=== PATIENT | female | born 1955 | race Caucasian/White ===

== ENCOUNTER 2025-02-12 19:07 | Emergency (ER) | payer MEDICARE, SELFPAY ==
[2025-02-12] VITALS (21 sets, daily range): BP systolic 108–187; BP diastolic 54–114; PULSE 60–76; RESP 10–38; TEMP 37.1; O2SAT 92–99; BMI 39.9
--- NOTE | 2025-02-12 19:22 | ED.UPPEXIN ---
HPI - Extremity Injury (Upper) General Chief Complaint: Trauma Stated Complaint: Fall on thinners, R arm injury Time Seen by Provider: 02/12/25 19:20 History of Present Illness HPI narrative: 69-year-old female with history of atrial fibrillation status post recent successful cardioversion in home area 2 days ago using propofol, taking same Eliquis anticoagulation, visiting family in the area from home [place] area, tonight tripped on a rug, fell onto right arm/shoulder, bumped the right side of her face. No loss of consciousness. Has distracting pain from very severe right shoulder pain. Right facial pain. Denies pain to chest, upper mid lower back, abdomen, hips, lower extremities, left upper extremity. Related Data Allergies Allergy/AdvReac Type Severity Reaction Status Date / Time sulfamethoxazole (From Allergy Intermediate Rash Verified 02/12/25 19:43 Bactrim) trimethoprim (From Bactrim) Allergy Intermediate Rash Verified 02/12/25 19:43 diclofenac AdvReac Mild Gastrointestinal Verified 02/12/25 19:43 Upset Patient History Social History Smoking Status: Never smoker Exam Narrative Exam Narrative: GENERAL: Well-developed patient, in mild distress. HEAD: Atraumatic. Normocephalic. EYES: Pupils equal round and reactive. Extraocular motions intact. No scleral icterus. No injection or drainage. ENT: Nose without bleeding, purulent drainage. Tonsillar hypertrophy or exudate. Airway patent. NECK: Trachea midline. Non tender CARDIOVASCULAR: Regular rate and rhythm without murmurs, gallops, or rubs. RESPIRATORY: Clear to auscultation. Breath sounds equal bilaterally. No wheezes, rales, or rhonchi. GASTROINTESTINAL: Abdomen soft, non-tender, nondistended. EXTREMITIES: Tenderness right upper shoulder with AC step-off and anterior fullness, possible shoulder dislocation, unclear if there is any tenderness along the mid upper humerus as well, versus pain from nearby dislocation, no obvious gross deformity along the mid distal humerus or at the elbow, which is in flexed position of comfort. No tenderness or deformity along the right forearm wrist hand fingers. Good right radial pulse. Good cap refill right fingers. BACK: Nontender without deformity or crepitance. No flank tenderness. NEURO: AOx3. Motor functions grossly nonfocal. SKIN: No rash or erythema of visible areas Initial Vital Signs Initial Vital Signs: Vital Signs Temperature 98.8 F 11/27/25 19:14 Pulse Rate 69 02/12/25 19:14 Respiratory Rate 24 02/12/25 19:14 Blood Pressure 187/114 H 02/12/25 19:14 Pulse Oximetry 98 02/12/25 19:14 Oxygen Delivery Method Room Air 02/12/25 19:14 Procedures Orthopedic Joint Reduction Joint #1: Time of procedure: 21:46 Time Out Performed: Yes Side: right Joint Reduction Location: shoulder Analgesia: procedural sedation Shoulder Technique Used (if applicable): external rotation (And impending manipulation with single attempt, palpable reduction.) Technique used: direct manipulation Post-reduction neuro exam: intact Post-reduction vascular: intact Post Reduction X-Ray Obtained: Yes Post Reduction X-Ray Results: reduced Splint Applied: Yes (Sling applied right shoulder) Patient Tolerated Procedure: Well Course Orders Ordered: ED Orders 02/12/25 19:23 CT head/brain wo con Stat 02/12/25 19:24 XR humerus RT 2V Stat XR shoulder RT 2+ views Stat 02/12/25 19:25 CBC Auto Diff [Complete Blood Count AUTO DIFF] Stat CMP [Comprehensive Metabolic Panel] Stat Prothrombin Time INR Stat 02/12/25 19:26 CT cervical spine wo con Stat 02/12/25 21:43 XR shoulder RT 2+ views Stat 02/12/25 21:51 CT UE RT wo con Stat Discontinued Medications Diphenhydramine HCl (Diphenhydramine 50 Mg/Ml Vial) 25 mg IV NOW ONE Stop: 02/12/25 20:13 Last Admin: 02/12/25 20:20 Dose: 25 mg Documented By: MARILYNN Hydromorphone HCl (Hydromorphone Hcl 0.5 Mg/0.5 Ml Syringe) 0.5 mg IV NOW ONE Stop: 02/12/25 19:29 Last Admin: 02/12/25 19:31 Dose: 0.5 mg Documented By: MARILYNN Hydromorphone HCl (Hydromorphone Hcl 0.5 Mg/0.5 Ml Syringe) 0.5 mg IV NOW ONE Stop: 02/12/25 20:24 Last Admin: 02/12/25 20:25 Dose: 0.5 mg Documented By: MARILYNN Metoclopramide HCl (Metoclopramide 10 Mg/2 Ml Inj) 10 mg IV NOW ONE Stop: 02/12/25 20:12 Last Admin: 02/12/25 20:19 Dose: 10 mg Documented By: MARILYNN Ondansetron HCl (Ondansetron 4 Mg/2 Ml Inj) 4 mg IV NOW ONE Stop: 02/12/25 19:29 Last Admin: 02/12/25 19:31 Dose: 4 mg Documented By: MARILYNN Ondansetron HCl (Ondansetron 4 Mg Odt) 4 mg SL NOW ONE Stop: 02/12/25 23:03 Last Admin: 02/12/25 23:23 Dose: Not Given Documented By: ELPIDIO Propofol (Propofol 200 Mg/20 Ml Vial) 200 mg IV NOW ONE Stop: 02/12/25 20:57 Last Admin: 02/12/25 21:39 Dose: 80 mg Documented By: MARILYNN Vital Signs Vital signs: Vital Signs - 8 hr 02/12/25 19:14 02/12/25 19:26 02/12/25 19:27 Temperature 98.8 F Pulse Rate 69 69 71 Respiratory Rate 24 24 Blood Pressure 187/114 H Pulse Oximetry 98 99 Oxygen Delivery Method Room Air Oxygen Flow Rate 02/12/25 19:30 02/12/25 20:09 02/12/25 20:10 Temperature Pulse Rate 70 70 69 Respiratory Rate Blood Pressure Pulse Oximetry 99 92 97 Oxygen Delivery Method Oxygen Flow Rate 02/12/25 20:10 02/12/25 20:30 02/12/25 20:30 Temperature Pulse Rate 76 Respiratory Rate Blood Pressure 146/71 H 143/85 H Pulse Oximetry 92 Oxygen Delivery Method Oxygen Flow Rate 02/12/25 21:00 02/12/25 21:22 02/12/25 21:30 Temperature Pulse Rate 65 65 Respiratory Rate 19 Blood Pressure Pulse Oximetry 96 97 Oxygen Delivery Method Oxygen Flow Rate 2 02/12/25 21:30 02/12/25 21:40 02/12/25 21:40 Temperature Pulse Rate 68 Respiratory Rate 38 H Blood Pressure 134/82 130/60 Pulse Oximetry 94 Oxygen Delivery Method Oxygen Flow Rate 02/12/25 21:45 02/12/25 21:45 02/12/25 21:52 Temperature Pulse Rate 63 64 Respiratory Rate 10 L 22 Blood Pressure 117/54 L Pulse Oximetry 98 99 Oxygen Delivery Method Oxygen Flow Rate 02/12/25 21:52 02/12/25 21:55 02/12/25 21:55 Temperature Pulse Rate 62 Respiratory Rate 26 H Blood Pressure 108/75 123/77 Pulse Oximetry 98 Oxygen Delivery Method Oxygen Flow Rate 02/12/25 22:00 02/12/25 22:00 02/12/25 22:03 Temperature Pulse Rate 61 69 Respiratory Rate 25 H 24 Blood Pressure 144/76 H Pulse Oximetry 95 Oxygen Delivery Method Oxygen Flow Rate 02/12/25 22:05 02/12/25 22:05 02/12/25 22:11 Temperature Pulse Rate 60 68 Respiratory Rate 21 28 H Blood Pressure 148/69 H Pulse Oximetry 94 97 Oxygen Delivery Method Oxygen Flow Rate 02/12/25 22:11 02/12/25 22:24 02/12/25 22:24 Temperature Pulse Rate 64 Respiratory Rate 14 Blood Pressure 139/68 137/78 Pulse Oximetry 98 Oxygen Delivery Method Oxygen Flow Rate 02/12/25 22:30 02/12/25 23:00 02/12/25 23:12 Temperature Pulse Rate 61 63 74 Respiratory Rate 10 L 14 28 H Blood Pressure Pulse Oximetry 95 93 97 Oxygen Delivery Method Oxygen Flow Rate 02/12/25 23:12 Temperature Pulse Rate Respiratory Rate Blood Pressure 155/92 H Pulse Oximetry Oxygen Delivery Method Oxygen Flow Rate MDM - Extremity Injury (Upper) Lab Data Attestation: I reviewed the patient's lab results. Lab results narrative: White blood cell count 8700, hemoglobin 11.2, platelets adequate. Glucose 163. BUN 22 elevated, with normal creatinine, normal serum CO2 and electrolytes. Liver functions normal. 02/12/25 19:25 02/12/25 19:25 Labs: Lab Results 02/12/25 Range/Units 19:25 WBC 8.7 (4.5-11.0) X10^3/uL RBC 3.87 L (4.0-5.2) X10^6/uL Hgb 11.2 L (12.0-16.0) g/dL Hct 33.5 L (36-46) % MCV 86.5 (80-100) fL MCH 29.0 (26-34) PG MCHC 33.5 (30-36) % RDW 14.6 (11.6-14.8) % Plt Count 278 (150-400) X10^3/uL Neut % (Auto) 58.4 (50-75) % Lymph % (Auto) 29.2 (25-40) % [place] % (Auto) 7.8 (3-14) % Eos % (Auto) 4.0 (2-4) % Baso % (Auto) 0.6 (0-2) % Neut # (Auto) 5100 (5594-4071) /uL Lymph # (Auto) 2500 (1703-2442) /uL [place] # (Auto) 700 (0-900) /uL Eos # (Auto) 300 (0-450) /uL Baso # (Auto) 0 (0-100) /uL PT 13.6 H (9.4-12.5) SECONDS INR 1.2 (0.9-1.3) Sodium 141 (137-145) mmol/L Potassium 3.6 (3.4-5.1) mmol/L Chloride 103 (98-107) mmol/L Carbon Dioxide 28 (22-32) mmol/L BUN 22 H (7-17) mg/dL Creatinine 0.97 (0.52-1.04) mg/dL Estimated GFR > 60 (>60) mL/min BUN/Creatinine Ratio 22.7 H (6-22) Glucose 163 H (70-99) mg/dL Calcium 9.1 (8.4-10.2) mg/dL Total Bilirubin 0.5 (0.2-1.3) mg/dL AST 32 (14-36) IU/L ALT 21 (<35) IU/L Alkaline Phosphatase 75 (38-126) U/L Total Protein 7.1 (6.3-8.2) g/dL Albumin 4.5 (3.5-5.0) g/dL Globulin 2.6 (1.7-4.1) g/dL Albumin/Globulin Ratio 1.7 (1.0-2.8) Point of Care Testing Test Results Positive MDM Narrative Medical decision making narrative: 69-year-old female with ground level fall, on Eliquis anticoagulation for atrial fibrillation status post recent successful cardioversion procedure in her home [place] area, mechanical fall tripping on a rug. Modified trauma due to chronic anticoagulation and head trauma, right facial pain after fall. Suspected clinical diagnosis right anterior shoulder dislocation. Primary survey: Airway, breathing, circulation intact. GCS 15. Secondary survey: See physical exam sections, remarkable for right shoulder tenderness with apparent anterior fullness, suspected shoulder dislocation on the right side. Lab data: White blood cell count 8700, hemoglobin 11.2, platelets adequate. Glucose 163. BUN 22 elevated, with normal creatinine, normal serum CO2 and electrolytes. Liver functions normal. CT head noncontrast, no acute changes. See radiology report. CT cervical spine noncontrast, no acute changes. See radiology report. Right shoulder x-ray series. Shows anterior dislocation, suspected glenoid/scapular fracture. See radiology report. Right humerus x-ray series. Again demonstrates anterior shoulder dislocation, no humeral shaft fractures definitive. See radiology report. 2100, case was discussed with Orthopedic surgery on-call Dr. Rodriguez, who was able to review shoulder plain films, also believes of the humerus shaft looks intact, possible scapular cup fracture, should be able to do normal technique reduction, if successful he would like postreduction right shoulder CT scan imaging. Above findings discussed with patient, she would like to proceed with reduction. Consent. See separate sedation and procedure notes. ------ Procedural Sedation Note: see ROS and EXAM above Last meal [3] hours prior to procedure ASA Classification [2, high BMI noted] ( ASA Classifications: 1-normal, 2-mild systemic disease, 3-severe systemic disease, 4- severe systemic disease that is constant threat to life, 5-moribund patient not expected to live without procedure) Time Out Completed[] yes Procedure performed by me for [] closed anterior right shoulder dislocation Procedure and alternatives explained, all questions answered and consent signed by [] verbal consent, could not by signed due to pain, verbal consent witnessed by me/RNs as well Time of sedation []2139 Medications administered by RN [] Medications administered by Provider [] yes Level of sedation [moderate] Medication used: IV propofol 80 mg total (40 mg bolus x2) Complications [] successful reduction single attempt, had brief desaturation as anticipated with elevated BMI, responsive to jaw thrust positioning and brief bag mask ventilation, purposeful movement and improved saturations and returned to preprocedural mental status baseline. Post procedure evaluation [] returned to preprocedural mental status baseline. ---- Single attempt [place] technique right shoulder reduction after IV propofol, reduced with single attempt, clinical reduction, neurovascular intact, postreduction x-ray looks anatomic. We will order right shoulder CT scan per ortho recommendation above. Recovery to baseline. CT right shoulder post reduction done per orthopedic surgery recommendation, did not confirm any fracture seen on plain films. Tolerated procedure well. Returned to preprocedure baseline mental status, ambulatory, able to take oral fluids. Advised continued use of right shoulder sling. Take pain medications as needed, she has a supply of tramadol that she has for travel to control pain if needed. She lives in the [facility], we will follow up with Orthopedic surgery there. Patient was printed copies of all her imaging results. Discharged home with family. Follow up with Orthopedic surgery early this next week after weekend. Discharge Plan Departure Patient Disposition: Home Clinical Impression: Anterior dislocation of right shoulder Instructions: DI for Shoulder Dislocation Activity Restrictions/Additional Instructions: Mechanical tripping fall on a rug, fell onto right arm, anterior shoulder dislocation on the right found by x-rays. There was initial concern by Radiology that there might be an associated scapular small fracture. The humerus bone of the upper arm otherwise did not seem to have any obvious fracture. CT scanning of the brain in the cervical spine of the neck did not show any obvious fracture injury patterns. We gave sedating medications and were able to put your dislocated right shoulder back into its normal place, in place you into a sling. You had recovery from the sedation, which he tolerated well. Orthopedic surgery had reviewed your x-rays before reduction, and wanted a CT scan of the right shoulder after the reduction was completed. This was performed, did not confirm any fractures that were suspected pre reduction, perhaps there were some kind of calcification or artifact at that time. You expressed intent to follow up with Orthopedic surgery in your home [facility]. Copies of your x-ray reports and CT reports were provided. In the past images were saved onto a disc to open by your providers but apparently they can be sent electronically per request of your home area providers as needed now, they did not printed any discs anymore with images. You have tramadol to take for pain control if needed. Wear your shoulder sling until seen by Orthopedic surgery early this next week after . Return to this/nearest emergency department for any change worsening symptoms or any concerns prior. Stand Alone Forms: Patient Portal/API
--- NOTE | 2025-02-12 19:23 | DI.CT.S_ITS ---
PROCEDURE: CT HEAD/BRAIN WO CON INDICATIONS: face head trauma, fall, on thinners TECHNIQUE: Noncontrast 4.5 mm thick angled axial sections acquired from the foramen magnum to the vertex, with coronal and sagittal reformats. For radiation dose reduction, the following was used: automated exposure control, adjustment of mA and/or kV according to patient size. COMPARISON: None. FINDINGS: Image quality: Diagnostic. CSF spaces: Basal cisterns are patent. No extra-axial fluid collections. Ventricles are normal in size and shape. Brain: No midline shift. No intracranial mass effect or hemorrhage. Clifford- white matter interface is normal. Skull and face: Calvarium and visualized facial bones are intact, without suspicious lesions. Sinuses: Visualized sinuses and mastoids are clear. IMPRESSION: 1. No acute intracranial process. Dictated by: Cari Teran M.D. on 02/12/2025 at 20:15 Approved by: Cari Teran M.D. on 02/12/2025 at 20:16
--- NOTE | 2025-02-12 19:24 | DI.RAD.S_ITS ---
PROCEDURE: XR SHOULDER RT MIN 2V INDICATIONS: shoulder injury GLF TECHNIQUE: 3 views of the shoulder were acquired. COMPARISON: None. FINDINGS: Bones: Humeral head is inferior medial to the glenohumeral joint space. Ill- defined lucencies are present at the glenoid/scalp. Soft tissues: No suspicious soft tissue calcifications. IMPRESSION: Anterior dislocation. Suspected glenoid/scapular fracture. Dictated by: Cari Teran M.D. on 02/12/2025 at 20:14 Approved by: Cari Teran M.D. on 02/12/2025 at 20:15
--- NOTE | 2025-02-12 19:24 | DI.RAD.S_ITS ---
PROCEDURE: XR HUMERUS RT 2V INDICATIONS: fall, ?fx. TECHNIQUE: 2 views of the humerus were acquired. COMPARISON: [facility], CR, XR SHOULDER RT 2+ VIEWS, 02/12/2025, 19:54. FINDINGS: Bones: Humeral head demonstrates inferior and medial position secondary to the glenohumeral joint space. Irregularity at the glenoid seen on shoulder view is not as well appreciated on current exam. Lucency at the humeral neck is present not seen on prior exam. Soft tissues: No suspicious soft tissue calcifications. IMPRESSION: Anterior dislocation. No definitive areas of fracture are identified. Areas of lucency at the humeral head on current exam and the glenoid on prior exam are not seen on all views and could be artifactual. Dictated by: Cari Teran M.D. on 02/12/2025 at 21:02 Approved by: Cari Teran M.D. on 02/12/2025 at 21:03
--- NOTE | 2025-02-12 19:26 | DI.CT.S_ITS ---
PROCEDURE: CT CERVICAL SPINE WO CON INDICATIONS: GLF, fentanyl from EMS TECHNIQUE: Noncontrast 3 mm thick sections acquired from the skull base to the T4 level. Sagittal and coronal reformats were then constructed. For radiation dose reduction, the following was used: automated exposure control, adjustment of mA and/or kV according to patient size. COMPARISON: None. FINDINGS: Image quality: Excellent. Bones: No fractures or dislocations. Visualized superior ribs are intact. Multilevel degenerative changes. Soft tissues: Prevertebral soft tissues are normal in thickness. No paravertebral hematomas. No apical pneumothoraces. IMPRESSION: No displaced fracture or traumatic subluxation. Dictated by: Cari Teran M.D. on 02/12/2025 at 20:23 Approved by: Cari Teran M.D. on 02/12/2025 at 20:24
[2025-02-12] MEDS: ONDANSETRON 4 MG/2 ML INJ IV (19:31)
[2025-02-12 19:43] LABS: Add Manual Diff / Slide Review NO; Hematocrit 33.5 % (36-46); Hemoglobin 11.2 g/dL (12.0-16.0); Lymphocytes Absolute Auto 2500 /uL (1100-4500); Mean Corpuscular HGB Conc 33.5 % (30-36); Mean Corpuscular Hemoglobin 29.0 PG (26-34); Mean Corpuscular Volume 86.5 fL (80-100); Platelet Count 278 X10^3/uL (150-400)
[2025-02-12 19:44] LABS: INR 1.2 (0.9-1.3); Prothrombin Time 13.6 SECONDS (9.4-12.5)
[2025-02-12 19:48] LABS: Alanine Aminotransferase 21 IU/L (<35); Albumin 4.5 g/dL (3.5-5.0); Albumin Globulin Ratio 1.7 (1.0-2.8); Alkaline Phosphatase 75 U/L (38-126); Blood Urea Nitrogen 22 mg/dL (7-17); Calcium 9.1 mg/dL (8.4-10.2); Carbon Dioxide 28 mmol/L (22-32); Chloride 103 mmol/L (98-107); Estimated Glomerular Filt Rate > 60 mL/min (>60); Globulin 2.6 g/dL (1.7-4.1); Glucose 163 mg/dL (70-99); HEMOLYSIS < 15 (0-50); Potassium 3.6 mmol/L (3.4-5.1); Sodium 141 mmol/L (137-145); Total Protein 7.1 g/dL (6.3-8.2)
[2025-02-12] MEDS: METOCLOPRAMIDE 10 MG/2 ML INJ IV (20:19)
[2025-02-12] MEDS: diphenhydrAMINE 50 MG/ML VIAL 25 MG IV (20:20)
--- NOTE | 2025-02-12 21:43 | DI.RAD.S_ITS ---
PROCEDURE: XR SHOULDER RT MIN 2V INDICATIONS: post reduction TECHNIQUE: 2 views of the shoulder were acquired. COMPARISON: [facility], CR, XR SHOULDER RT 2+ VIEWS, 02/12/2025, 19:54. FINDINGS: Bones: Interval reduction of humeral dislocation. There is good anatomic alignment. No gross fractures identified. Soft tissues: No suspicious soft tissue calcifications. IMPRESSION: Interval reduction with good anatomic alignment. No visualized acute fracture. However, if clinical concern and/or pain persist, short interval imaging followup in 7-10 days is recommended, as occult injury cannot be definitively excluded. Dictated by: Cari Teran M.D. on 02/12/2025 at 21:57 Approved by: Cari Teran M.D. on 02/12/2025 at 21:57
--- NOTE | 2025-02-12 21:51 | DI.CT.S_ITS ---
PROCEDURE: CT UE RT WO CON INDICATIONS: post reduction R shoulder, per ortho, scapular fx TECHNIQUE: Noncontrast 0.75 mm thick sections acquired from the acromioclavicular joint to the inferior scapula, with coronal and sagittal reformatting. COMPARISON: [facility], CR, XR SHOULDER RT 2+ VIEWS, 02/12/2025, 21:39. FINDINGS: Image quality: Excellent. Bones: No visualized fracture or dislocation. Severe acromioclavicular and moderate glenohumeral degenerative narrowing. Soft tissues: No abscess or abnormal mass. Visualized portions of the right long are unremarkable. 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 Dictated by: Cari Teran M.D. on 02/12/2025 at 22:44 Approved by: Cari Teran M.D. on 02/12/2025 at 22:46
== END 2025-02-12 23:24 | disposition home or self-care (01) ==
PROVIDERS: Emergency Provider Emergency Medicine
DX: S43.014A Anterior dislocation of right humerus, initial encounter (principal); R51.9 Headache, unspecified; I48.91 Unspecified atrial fibrillation; W01.0XXA Fall on same level from slipping, tripping and stumbling without subsequent striking against object, initial encounter; Z79.01 Long term (current) use of anticoagulants
CPT/HCPCS: 23650; 70450; 72125; 73030; 73060; 73200; 80053; 85025; 85610; 96374; 96375; 96376; 99152; 99153; 99284; 99285; J1171; J1200; J2405; J2704; J2765